=== PATIENT | male | born 1950 | race Caucasian/White ===

== ENCOUNTER 2017-11-17 06:02 | Day surgery (SDC) ==
[2017-11-17] MEDS: TETRACAINE 0.5% UNIT-DOSE OP PRN ×3 (06:40→07:30)
[2017-11-17] MEDS: CYCLOGYL 2% OPTH OP PRN ×3 (06:40→06:50)
[2017-11-17] MEDS: BETADINE OPTH PREP OP PRN ×3 (06:40→07:30)
[2017-11-17 06:41] VITALS: TEMP 97.1
[2017-11-17] MEDS ORDERED: BRIMONIDINE TARTRATE 0.2% OPTH SOL OP PRN (06:47)
[2017-11-17] MEDS ORDERED: LIDOCAINE 1%/PHENYLEPHRINE 1.5% BSS (SURGERY) INTRAOCULA ONE (06:47)
[2017-11-17] MEDS ORDERED: BSS WITH EPINEPHRINE OP ONE (06:47)
[2017-11-17] MEDS ORDERED: ZOFRAN 4 MG/2 ML IVP ONE (06:47)
[2017-11-17] MEDS ORDERED: DEX-MOXI-KETOR OPTH INJ 1/0.5/0.4 MG/ML IO ONE (06:47)
[2017-11-17] MEDS ORDERED: LIDOCAINE 1% 20 ML MDV ONE (06:55)
[2017-11-17] MEDS ORDERED: LIDOCAINE 1% 2ML (SURGERY ONLY) ID STA (06:59)
[2017-11-17] MEDS ORDERED: VERSED ONE (07:38)
[2017-11-17] MEDS ORDERED: SUBLIMAZE ONE (07:38)
[2017-11-17 16:28] VITALS: BP 128/67
== END 2017-11-17 08:20 | disposition home or self-care (01) ==
LOC: SURG 06:02
PROVIDERS: ATTEND Ophthalmology
DX: H25.812 Combined forms of age-related cataract, left eye (principal)

== ENCOUNTER 2017-12-01 06:05 | Day surgery (SDC) | payer OTHER ==
[2017-12-01] MEDS: TETRACAINE 0.5% UNIT-DOSE OP PRN ×2 (06:30→06:57)
[2017-12-01] MEDS: BETADINE OPTH PREP OP PRN ×2 (06:30→06:57)
[2017-12-01] MEDS: CYCLOGYL 2% OPTH OP PRN ×3 (06:30→06:40)
[2017-12-01] MEDS ORDERED: BRIMONIDINE TARTRATE 0.2% OPTH SOL OP PRN (06:39)
[2017-12-01] MEDS ORDERED: LIDOCAINE 1% 20 ML MDV ID STA (06:39)
[2017-12-01] MEDS ORDERED: ZOFRAN 4 MG/2 ML IVP ONE (06:39)
[2017-12-01 06:50] VITALS: TEMP 97.1
[2017-12-01] MEDS ORDERED: SUBLIMAZE ONE (07:15)
[2017-12-01] MEDS ORDERED: VERSED ONE (07:15)
[2017-12-01] MEDS: BSS WITH EPINEPHRINE OP ONE (07:23)
[2017-12-01] MEDS: LIDOCAINE 1%/PHENYLEPHRINE 1.5% BSS (SURGERY) INTRAOCULA ONE (07:23)
[2017-12-01] MEDS: DEX-MOXI-KETOR OPTH INJ 1/0.5/0.4 MG/ML IO ONE ×2 (07:28→07:31)
[2017-12-09 14:06] VITALS: BP 123/665
== END 2017-12-01 08:20 | disposition home or self-care (01) ==
LOC: SURG 06:05
PROVIDERS: ATTEND Ophthalmology
DX: H25.811 Combined forms of age-related cataract, right eye (principal)